=== PATIENT | female | born 1980 | race Caucasian/White ===

== ENCOUNTER → 2016-07-02 | Outpatient (CLI) | payer OTHER ==
[~2016-07-02] MED LIST: ATV/1 PO; CITA20TA9 PO; DULO60CA44 PO; HYDR-5688 PO; HYDR1CAP85 PO; LORA-741 PO; ONDA4TAB10 SL; PANT40TA PO
== END | disposition home or self-care (01) ==
LOC: C.LABBFT 10:25
PROVIDERS: ATTEND Internal Medicine
DX: E55.9 Vitamin D deficiency, unspecified (principal)

== ENCOUNTER 2016-07-07 12:54 | Emergency (ER) | payer OTHER ==
[~2016-07-07] VITALS: Ht 160 cm; Wt 89.4 kg
[~2016-07-07 12:54] MED LIST changes: -ATV/1 PO; -CITA20TA9 PO; -DULO60CA44 PO; -HYDR1CAP85 PO; -LORA-741 PO; -ONDA4TAB10 SL; -PANT40TA PO
[2016-07-07 12:58] VITALS: TEMP 36.7; Ht 160 cm; Wt 89.4 kg
[2016-07-07] MEDS ORDERED: LORAZEPAM 1 MG TAB SL STA (13:41)
[2016-07-07] MEDS ORDERED: DULO60CA44 PO (14:12)
[2016-07-07] MEDS ORDERED: ATV/1 PO (14:43)
[2016-07-07 14:54] VITALS: BP 129/85; PULSE 80; O2SAT 98
--- NOTE | 2016-07-07 17:12 | EMERGENCY ROOM VISIT NOTE ---
History Report prepared by Stephanie: Alisa Russo Under the Supervision of: Dr. Yrn Silva M.D. First contact with patient: 13:39 Chief Complaint: ANXIETY Stated Complaint: CHEST PAIN, DIZZY, FLUSHED, SHAKING History of Present Illness The patient is a 36 year old female who presents to the Emergency Room for evaluation after a possible anxiety attack while driving to work about 20 minutes prior to arrival. At the time of onset, the patient was driving to her first day of her new job when she suddenly felt a warm sensation radiating from her lower extremities, up her legs, abdomen and chest. She then felt a pounding in her chest, and she began shaking. Patient states that she has a history of anxiety, but she has never experienced similar symptoms to this with her past episodes, so she came to the ED for further evaluation. Patient notes that she was recently placed on Cymbalta 4 days ago, but her psychiatrist mentioned to her that it may take up to 2 months before it becomes effective. Patient states that she has been under a lot of stress lately due to her family and work. She also states that she has been attempting to quit smoking, and she was wearing a nicotine patch prior to arrival today. She denies recent fevers, chill, cough, chest pain, abdominal pain, nausea, vomiting (above baseline), diarrhea or urinary symptoms. Patient denies history of thyroid problems. 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 She began shaking. Review of Systems See HPI for pertinent positives & negatives. A total of 10 systems reviewed and were otherwise negative. Past Medical & Surgical Medical Problems: (1) Cervicalgia (2) Headache (3) Migraine Unspecified W/O Intract Mgrn W/O Status Migrainosus (4) Personal History Of Urinary Calculi (5) Pyelonephritis Nos (6) Tension Headache Family History Cancer Diabetes mellitus Gallbladder disease Heart disease Hypertension Kidney disease Kidney stones Lung disease Seizures Social History Smoking Status: Current Every Day Smoker Alcohol Use: none Drug Use: none Marital Status: in relationship Housing Status: lives with family Occupation Status: employed Current/Historical Medications Scheduled Duloxetine Hcl (Cymbalta), 60 MG PO DAILY Scheduled PRN Lorazepam (Ativan), 1-2 MG PO TID PRN for Anxiety/Agitation Allergies Coded Allergies: Pseudoephedrine (Unverified Allergy, Severe, ANAPHYLAXIS, 07/07/16) Sumatriptan (Unverified Allergy, Severe, ANAPHYLAXIS, 07/07/16) Tramadol (Unverified Allergy, Mild, RASH, 07/07/16) ITCHING AND MIGRAINE Penicillins (Unverified Allergy, Unknown, ITCHY/ RASH, 07/07/16) Physical Exam Vital Signs Date Time Temp Pulse Resp B/P Pulse Ox O2 Delivery O2 Flow Rate FiO2 07/07/16 14:54 80 129/85 98 07/07/16 12:58 36.7 18 20 136/97 96 Room Air Physical Exam GENERAL: Patient appears anxious and tearful. HEENT: No acute trauma, normocephalic atraumatic, mucous membranes moist, no nasal congestion, no scleral icterus. NECK: No stridor, no adenopathy, no meningismus, trachea is midline. LUNGS: Clear to auscultation bilaterally, no wheeze, no rhonchi, breath sounds equal. HEART: Without murmurs gallops or rubs, regular rate and rhythm. ABDOMEN: Soft, nontender, bowel sounds positive, no hernias, no peritonitis. EXTREMITIES: No cyanosis or edema, full range of motion of all the joints without pain or difficulty, no signs for acute trauma. NEUROLOGIC: Oriented x 3, no acute motor or sensory deficits, no focal weakness. No cerebellar dysfunction. SKIN: No rash, no jaundice, no diaphoresis. PSYCH: Cooperative, not suicidal, voluntary. Admits to anxiety. Medical Decision & Procedures Medications Administered Medications (Trade) Dose Ordered Sig/Nichole Route Start Time Stop Time Status Last Admin Dose Admin Lorazepam (Ativan Tab) 2 mg NOW STAT SL 07/07/16 13:41 07/07/16 13:45 DC 07/07/16 13:49 2 MG ED Course 1338: The patient was evaluated in room C1. A complete history and physical exam was performed. 1341: Ativan tab 2 mg SL was ordered. 1433: Upon reevaluation, the patient appeared to be resting more comfortably. She also stated that she felt better. I updated her on the results of my findings from her exam. Discharge instructions were also discussed. She verbalized her understanding and agreement with the treatment plan, and she is now ready for disposition. Medical Decision The patient is a 36 year old female who presents to the ED for evaluation after possibly suffering an anxiety attack 20 minutes prior to arrival. Differential diagnoses considered include anxiety and panic attack, dysrhythmia, SI, electrolyte imbalance, thyroid disorder and medication reaction. The patient presents with what sounds like an anxiety attack. She has a history of the same. She was recently started on Cymbalta for anxiety. She is not homicidal or suicidal. She would like something to help with her symptoms. She does not want to stay in the hospital on the psychiatry services. Other than being anxious, the patient's exam was unremarkable. She was given 2 mg of Ativan sublingual, she feels improved, she would like to be discharged home. I will have her use Ativan as needed for breakthrough anxiety. She will return if feeling suicidal or homicidal. [place] Drug Monitoring Program Search Results: patient reviewed within database, no issues identified Impression Primary Impression: Anxiety attack Scribe Attestation The scribe's documentation has been prepared under my direction and personally reviewed by me in its entirety. I confirm that the note above accurately reflects all work, treatment, procedures, and medical decision making performed by me. Departure Information Dispostion Home / Self-Care Prescriptions Lorazepam (ATIVAN) 1 Mg Tab 1-2 MG PO TID Y for Anxiety/Agitation, #12 TAB Prov: Yrn Silva M.D. 07/07/16 Referrals Silvio Morocho M.D. (PCP) Forms HOME CARE DOCUMENTATION FORM, IMPORTANT VISIT INFORMATION Patient Instructions My [facility] Additional Instructions talk with your prescribing doctor about todays visit use ativan 1-2 tab as needed up to 3x per day for anxiety attacks return if worsening or feeling suicidal
== END 2016-07-07 14:55 | disposition home or self-care (01) ==
LOC: C.EDB 12:55 → C.EDC 14:55
DX: F41.0 Panic disorder [episodic paroxysmal anxiety] (principal); G43.909 Migraine, unspecified, not intractable, without status migrainosus; Z87.442 Personal history of urinary calculi; F17.210 Nicotine dependence, cigarettes, uncomplicated; Z79.899 Other long term (current) drug therapy

== ENCOUNTER 2016-10-11 08:10 | Emergency (ER) | payer OTHER ==
[~2016-10-11] VITALS: Ht 160 cm; Wt 86.1 kg
[~2016-10-11 08:10] MED LIST changes: +DULO60CA44 PO; -HYDR-5688 PO
[2016-10-11 08:12] VITALS: TEMP 36.4; Ht 160 cm; Wt 86.1 kg
[2016-10-11] MEDS ORDERED: PROMETHAZINE HCL INJ 25 MG in SODIUM CHLORIDE 0.9% 50ML 50 ML IV STA (08:32)
--- NOTE | 2016-10-11 08:35 | EMERGENCY ROOM VISIT NOTE ---
History Report prepared by Stephanie: Jamaal Krueger Under the Supervision of: Maria Luisa RoyalO. First contact with patient: 08:17 Chief Complaint: HEAD PAIN Stated Complaint: HEAD/NECK PAIN,VOMITING,ANXIETY,DIARRHEA History of Present Illness The patient is a 36 year old female who presents to the Emergency Room with complaints of persistent back of the head pain beginning six weeks prior to arrival. She currently rates her discomfort as a 6/10 in severity. The patient associates dizziness described as spinning, lightheadedness, neck pain, nausea, vomiting, diarrhea, jaw pain, dry cough, and nasal congestion with today's symptoms. She states she vomits when she wakes up. The patient notes she has been taking laxatives that may have contributed to her diarrhea. She states she was recently placed on anxiety medications for her symptoms. The patient notes the discomfort in the back of her head feels like tension. She states she went to the doctor and tried the anxiety medications, but they have not relieved her symptoms. The patient denies trying a massage or anyone suggesting injections in the back of her neck for relief. 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 Review of Systems See above for pertinent positives & negatives. A total of 10 systems reviewed and were otherwise negative. Past Medical & Surgical Medical Problems: (1) Cervicalgia (2) Headache (3) Migraine Unspecified W/O Intract Mgrn W/O Status Migrainosus (4) Personal History Of Urinary Calculi (5) Pyelonephritis Nos (6) Tension Headache Family History Cancer Diabetes mellitus Gallbladder disease Heart disease Hypertension Kidney disease Kidney stones Lung disease Seizures Social History Smoking Status: Current Every Day Smoker Alcohol Use: none Drug Use: none Marital Status: in relationship Housing Status: lives with family Occupation Status: employed Current/Historical Medications Scheduled Citalopram Hydrobromide (Celexa), 20 MG PO HS Ondasetron Odt (Zofran Odt), 4 MG SL Q6H Allergies Coded Allergies: Pseudoephedrine (Unverified Allergy, Severe, ANAPHYLAXIS, 10/11/16) Sumatriptan (Unverified Allergy, Severe, ANAPHYLAXIS, 10/11/16) Tramadol (Unverified Allergy, Mild, RASH, 10/11/16) ITCHING AND MIGRAINE Penicillins (Unverified Allergy, Unknown, ITCHY/ RASH, 10/11/16) Physical Exam Vital Signs Date Time Temp Pulse Resp B/P Pulse Ox O2 Delivery O2 Flow Rate FiO2 10/11/16 10:28 61 18 99/65 96 Room Air 10/11/16 09:26 57 18 102/70 96 Room Air 10/11/16 09:04 59 10/11/16 08:56 97 Room Air 10/11/16 08:55 67 18 109/59 97 Room Air 10/11/16 08:12 36.4 84 18 132/78 96 Room Air Physical Exam GENERAL: Patient is fidgety, well appearing and in no acute distress. HEENT: No acute trauma, normocephalic atraumatic, mucous membranes moist, no nasal congestion, no scleral icterus. NECK: No stridor, no adenopathy, no meningismus, trachea is midline. LUNGS: No dyspnea. Clear to auscultation and equal bilaterally. No wheeze, no rhonchi. HEART: Regular rate and rhythm. No murmurs, rubs, gallops appreciated. ABDOMEN: Soft, nontender, bowel sounds positive, no masses appreciated, no peritonitis. BACK: No midline tenderness, no CVA tenderness EXTREMITIES: Normal motion all extremities, no cyanosis, no edema. NEUROLOGIC: Alert and oriented, no acute motor or sensory deficits, no focal weakness, cranial nerves II-XII intact. No pronator drift. Normal finger to nose. Negative Romberg. No nystagmus. SKIN: No rash, no jaundice, no diaphoresis. PSYCH: Mild pressured speech. Medical Decision & Procedures Laboratory Results 10/11/16 08:40 Red Blood Count 4.65, Mean Corpuscular Volume 88.8, Mean Corpuscular Hemoglobin 30.3, Mean Corpuscular Hemoglobin Concent 34.1, Mean Platelet Volume 10.6, Neutrophils (%) (Auto) 67.8, Lymphocytes (%) (Auto) 23.0, Monocytes (%) (Auto) 5.6, Eosinophils (%) (Auto) 2.5, Basophils (%) (Auto) 0.8, Neutrophils # (Auto) 6.14, Lymphocytes # (Auto) 2.08, Monocytes # (Auto) 0.51, Eosinophils # (Auto) 0.23, Basophils # (Auto) 0.07 10/11/16 08:40 Test 10/11/16 08:40 10/11/16 08:43 White Blood Count 9.06 K/uL (4.8-10.8) Red Blood Count 4.65 M/uL (4.2-5.4) Hemoglobin 14.1 g/dL (12.0-16.0) Hematocrit 41.3 % (37-47) Mean Corpuscular Volume 88.8 fL (80-100) Mean Corpuscular Hemoglobin 30.3 pg (25-34) Mean Corpuscular Hemoglobin Concent 34.1 g/dl (32-36) Platelet Count 286 K/uL (130-400) Mean Platelet Volume 10.6 fL (7.4-10.4) Neutrophils (%) (Auto) 67.8 % Lymphocytes (%) (Auto) 23.0 % Monocytes (%) (Auto) 5.6 % Eosinophils (%) (Auto) 2.5 % Basophils (%) (Auto) 0.8 % Neutrophils # (Auto) 6.14 K/uL (1.4-6.5) Lymphocytes # (Auto) 2.08 K/uL (1.2-3.4) Monocytes # (Auto) 0.51 K/uL (0.11-0.59) Eosinophils # (Auto) 0.23 K/uL (0-0.5) Basophils # (Auto) 0.07 K/uL (0-0.2) RDW Standard Deviation 42.3 fL (36.4-46.3) RDW Coefficient of Variation 13.2 % (11.5-14.5) Immature Granulocyte % (Auto) 0.3 % Immature Granulocyte # (Auto) 0.03 K/uL (0.00-0.02) Anion Gap 8.0 mmol/L (3-11) Est Creatinine Clear Calc Drug Dose 98.4 ml/min Estimated GFR () 105.9 Estimated GFR (Non- 91.4 BUN/Creatinine Ratio 18.8 (10-20) Calcium Level 9.4 mg/dl (8.5-10.1) Total Bilirubin 0.6 mg/dl (0.2-1) Direct Bilirubin 0.1 mg/dl (0-0.2) Aspartate Amino Transf (AST/SGOT) 14 U/L (15-37) Alanine Aminotransferase (ALT/SGPT) 23 U/L (12-78) Alkaline Phosphatase 73 U/L (45-117) Total Protein 8.3 gm/dl (6.4-8.2) Albumin 3.7 gm/dl (3.4-5.0) Lipase 74 U/L (73-393) Thyroid Stimulating Hormone (TSH) 0.727 uIu/ml (0.300-4.500) Urine Color DK YELLOW Urine Appearance CLOUDY (CLEAR) Urine pH 6.0 (4.5-7.5) Urine Specific [place] 1.032 (1.000-1.030) Urine Protein NEG (NEG) Urine Glucose (UA) NEG (NEG) Urine Ketones TRACE (NEG) Urine Occult Blood TRACE (NEG) Urine Nitrite NEG (NEG) Urine Bilirubin NEG (NEG) Urine Urobilinogen NEG (NEG) Urine Leukocyte Esterase NEG (NEG) Urine WBC (Auto) 10-30 /hpf (0-5) Urine RBC (Auto) 0-4 /hpf (0-4) Urine Hyaline Casts (Auto) 1-5 /lpf (0-5) Urine Epithelial Cells (Auto) >30 /lpf (0-5) Urine Bacteria (Auto) 4+ (NEG) Urine Pathogenic Casts /lpf (0) Urine Test NEG (NEG) Laboratory results as reviewed by me. Medications Administered Medications (Trade) Dose Ordered Sig/Nichole Route Start Time Stop Time Status Last Admin Dose Admin Sodium Chloride 1,000 ml @ 999 mls/hr Q1H1M IV 10/11/16 08:45 11/10/16 08:44 10/11/16 09:55 999 MLS/HR Promethazine HCl/ Sodium Chloride (Phenergan Inj/ Nss 50ml) 51 ml @ 204 mls/hr NOW STAT IV 10/11/16 08:32 10/11/16 08:46 DC 10/11/16 08:52 204 MLS/HR Bupivacaine HCl (Marcaine 0.5% MPF Inj) 30 ml NOW ONCE INFIL 10/11/16 08:45 10/11/16 08:46 DC 10/11/16 08:45 30 ML Ketorolac Tromethamine (Toradol Inj) 30 mg NOW STAT IV 10/11/16 09:51 10/11/16 09:52 DC 10/11/16 09:55 30 MG Procedure Lower Cervical Paraspinous Injection Indication: Myofascial Pain Syndrome. Verbal and written consent obtained. Risks and benefits were explained with the usual customary discussion. A time out was taken. No complications. The patient tolerated the procedure well. The area of the bilateral paraspinous musculature 1 cm lateral to the C7 spinous process was sterilized with chlorhexidine. Approximately 1.5 ML's of 0.5% Marcaine was injected after careful aspiration. Patient tolerated the procedure well Complications: None ECG Indication: other (head pain/neck pain) Rate (beats per minute): 62 Rhythm: normal sinus Findings: other (Normal axis. Normal intervals. No ST elevations.) Comparison ECG Date: 02/21/2016 Change: T wave is now upright in V2 likely lead placement related. ED Course 0824: The patient was evaluated in room B2. A complete history and physical exam was performed. 0832: Ordered Promethazine HCl 25 mg/Sodium Chloride 51 ml @ 204 mls/hr IV. 0845: Ordered Bupivacaine HCl 30 ml INFIL, Sodium Chloride 1,000 ml @ 999 mls/ hr IV. 0951: Ordered Toradol Inj 30 mg IV. 1003: Reevaluated the patient, and she is feeling better. Discussed results and discharge instructions: She verbalized understanding and agreement. The patient is ready for discharge. Medical Decision The differential diagnoses include but are not limited to: Etiologies such as migraine headache, meningitis, sinusitis, CO exposure, ICH, SAH, infection, tumor, headache, sinus thrombosis, arterial dissection, as well as others were entertained. Patient is a 36-year-old female with multiple complaints today. She states that she is seeking emergency medicine evaluation because she is not gotten a diagnosis from her primary doctor and is tired of the complaints which it been present for 6 weeks. Patient's headache/cervical pain she describes as a tension type that worsens when she clenches her teeth and experiences more stress. She states that she is dizzy and the room is spinning and episode occurred during my evaluation in the was no nystagmus. She is also complaining of nausea and vomiting. On my physical exam cranial nerves II through XII are grossly intact was no pronator drift and negative Romberg this was a nonfocal neurologic examination. The abdomen was soft nontender nondistended no guarding this was a nonsurgical abdomen. Will be evaluating for possible causes of nausea and vomiting which include pancreatitis hepatitis and , electrolyte disorder. She was given a bilateral paraspinal injection for the tension type headache. Patient appears to have asymmetric bacteria will send for formal culture and, if positive would treat with nitrofurantoin 100 mg twice a day for 7 days. [place] Drug Monitoring Program Search Results: patient reviewed within database, see additional documentation Drug Monitoring Findings: It is noted the patient has multiple providers with multiple prescriptions over the past six months. Most recently, the patient had three different prescribers for Ativan in the past three months. Impression Primary Impression: Tension headache Additional Impressions: Cervicalgia Asymptomatic bacteriuria Scribe Attestation The scribe's documentation has been prepared under my direction and personally reviewed by me in its entirety. I confirm that the note above accurately reflects all work, treatment, procedures, and medical decision making performed by me. Departure Information Dispostion Home / Self-Care Prescriptions Ondasetron Odt (ZOFRAN ODT) 4 Mg Tab 4 MG SL Q6H for Nausea, #6 TAB Prov: Pito Novak D.O. 10/11/16 Referrals Shaan Arcos M.D. (PCP) Forms HOME CARE DOCUMENTATION FORM, IMPORTANT VISIT INFORMATION, WORK / SCHOOL INSTRUCTIONS Patient Instructions ED Headache Tension, My [facility] Additional Instructions Follow-up with her primary care provider for further evaluation. Your labs today were normal. There was some bacteria in your urine, a urine culture will be performed. If this is positive you will be notified via telephone. Problem Qualifiers
[2016-10-11] MEDS ORDERED: CITA20TA9 PO (08:41)
[2016-10-11] MEDS ORDERED: BUPIVACAINE 0.5 % 5 MG/1 ML MPF 30ML VIAL INFIL ONE (08:45)
[2016-10-11] MEDS: SODIUM CHLORIDE 0.9% 1000ML 1,000 ML IV SCH ×2 (08:52→09:55)
[2016-10-11 08:56] VITALS: O2SAT 97
[2016-10-11 09:04] LABS: MANUAL MICROSCOPIC REQUIRED? NO; REVIEW REQ? YES; URINE APPEARANCE CLOUDY (CLEAR); URINE BILIRUBIN NEG (NEG); URINE COLOR DK YELLOW; URINE EPITHELIAL CELL AUTO >30 /lpf (0-5); URINE NITRITE NEG (NEG); URINE SPECIFIC GRAVITY 1.032 (1.000-1.030); UROBILINOGEN NEG (NEG); ZZUR CULT IF INDIC CLEAN CATCH YES
[2016-10-11 09:05] LABS: BASO % 0.8 %; BASO ABS # 0.07 K/uL (0-0.2); COMPLETE YES; EOS % 2.5 %; HEMATOCRIT 41.3 % (37-47); IG% 0.3 %; LYMPH ABS # 2.08 K/uL (1.2-3.4); MEAN CELL VOLUME 88.8 fL (80-100); MEAN CORPUSCULAR HEMOGLOBIN 30.3 pg (25-34); MEAN CORPUSCULAR HGB CONC 34.1 g/dl (32-36); MEAN PLATELET VOLUME 10.6 fL (7.4-10.4); MONO % 5.6 %; NEUT % 67.8 %; PLATELET COUNT 286 K/uL (130-400); RED BLOOD COUNT 4.65 M/uL (4.2-5.4); WHITE BLOOD COUNT 9.06 K/uL (4.8-10.8)
[2016-10-11 09:23] LABS: BUN/CREATININE RATIO 18.8 (10-20); CREATININE 0.83 mg/dl (0.60-1.20); POTASSIUM 3.8 mmol/L (3.5-5.1)
[2016-10-11 09:24] LABS: CALCIUM 9.4 mg/dl (8.5-10.1)
[2016-10-11 09:34] LABS: THYROID STIMULATING HORMONE 0.727 uIu/ml (0.300-4.500)
[2016-10-11] MEDS ORDERED: KETOROLAC TROMETHAMINE 30 MG/ML VIAL IV STA (09:51)
[2016-10-11] MEDS ORDERED: ONDA4TAB10 SL (10:44)
[2016-10-11 11:37] VITALS: BP 105/68; PULSE 63; O2SAT 96
== END 2016-10-11 11:38 | disposition home or self-care (01) ==
LOC: C.EDB 08:11
DX: G44.209 Tension-type headache, unspecified, not intractable (principal); M54.2 Cervicalgia; M79.1 Myalgia; R82.71 Bacteriuria; F17.200 Nicotine dependence, unspecified, uncomplicated; Z87.440 Personal history of urinary (tract) infections; Z87.442 Personal history of urinary calculi; Z88.1 Allergy status to other antibiotic agents; Z88.8 Allergy status to other drugs, medicaments and biological substances; Z80.9 Family history of malignant neoplasm, unspecified; Z83.3 Family history of diabetes mellitus; Z83.79 Family history of other diseases of the digestive system; Z82.49 Family history of ischemic heart disease and other diseases of the circulatory system; Z84.1 Family history of disorders of kidney and ureter; Z82.0 Family history of epilepsy and other diseases of the nervous system

== ENCOUNTER 2017-03-18 16:39 | Emergency (ER) | payer OTHER ==
[~2017-03-18] VITALS: Ht 160 cm; Wt 89.9 kg
[~2017-03-18 16:39] MED LIST changes: +CITA20TA9 PO; -DULO60CA44 PO; +ONDA4TAB10 SL
[2017-03-18 16:41] VITALS: TEMP 36.6; Ht 160 cm; Wt 89.9 kg
[2017-03-18] MEDS ORDERED: KETOROLAC TROMETHAMINE 30 MG/ML VIAL IV STA (17:00)
[2017-03-18] MEDS ORDERED: SODIUM CHLORIDE 0.9% 1000ML 2,000 ML IV STA (17:00)
[2017-03-18] MEDS ORDERED: ONDANSETRON INJ 2 MG/ML 2 ML VIAL IV STA (17:00)
[2017-03-18] MEDS ORDERED: LORA-741 PO (17:22)
[2017-03-18] MEDS ORDERED: HYDR1CAP85 PO (17:22)
[2017-03-18] MEDS ORDERED: PANT40TA PO (17:22)
[2017-03-18 17:28] LABS: BASO % 0.5 %; BASO ABS # 0.05 K/uL (0-0.2); COMPLETE YES; EOS % 1.7 %; HEMATOCRIT 41.8 % (37-47); IG% 0.3 %; LYMPH % 19.5 %; LYMPH ABS # 2.15 K/uL (1.2-3.4); MEAN CELL VOLUME 88.9 fL (80-100); MEAN CORPUSCULAR HEMOGLOBIN 28.9 pg (25-34); MEAN CORPUSCULAR HGB CONC 32.5 g/dl (32-36); MEAN PLATELET VOLUME 10.3 fL (7.4-10.4); MONO % 3.2 %; NEUT % 74.8 %; PLATELET COUNT 271 K/uL (130-400); WHITE BLOOD COUNT 11.02 K/uL (4.8-10.8)
--- NOTE | 2017-03-18 17:41 | DIAGNOSTIC IMAGING REPORT ---
CHEST ONE VIEW PORTABLE CLINICAL HISTORY: 36 years-old Female presenting with chest pain. TECHNIQUE: Portable upright AP view of the chest was obtained. COMPARISON: 03/11/2016. FINDINGS: Cardiomediastinal silhouette normal. Lungs and pleural spaces clear. Osseous structures normal. Upper abdomen normal. IMPRESSION: 1. No acute cardiopulmonary disease. Electronically signed by: Vasyl Morrow M.D. 03/18/2017 5:40 PM Dictated Date/Time: 03/18/2017 5:39 PM
[2017-03-18 17:46] LABS: BUN/CREATININE RATIO 14.1 (10-20); CALCIUM 9.5 mg/dl (8.5-10.1); CREATININE 0.76 mg/dl (0.60-1.20); POTASSIUM 3.8 mmol/L (3.5-5.1)
[2017-03-18 17:50] LABS: URINE APPEARANCE CLEAR (CLEAR); URINE BILIRUBIN NEG (NEG); URINE COLOR YELLOW; URINE EPITHELIAL CELL AUTO >30 /lpf (0-5); URINE NITRITE NEG (NEG); URINE PH 8.5 (4.5-7.5); URINE SPECIFIC GRAVITY 1.013 (1.000-1.030); UROBILINOGEN NEG (NEG); ZZUR CULT IF INDIC CLEAN CATCH YES
[2017-03-18 17:51] LABS: MANUAL MICROSCOPIC REQUIRED? NO; REVIEW REQ? NO
--- NOTE | 2017-03-18 18:00 | DIAGNOSTIC IMAGING REPORT ---
HEAD WITHOUT CONTRAST (CT) CT DOSE: 988.73 mGycm HISTORY: Mental status change. Visual disturbance. ALLEN blurry vision TECHNIQUE: Multiaxial CT images of the head were performed without the use of intravenous contrast. A dose lowering technique was utilized adhering to the principles of ALARA. Comparison: 01/07/2014 Findings: The paranasal sinuses and mastoid air cells are clear. The calvarium and skull base are intact. The ventricles and sulci are within normal limits. There is no mass, hematoma, midline shift, or acute infarct. Impression: No acute intracranial abnormality. The above report was generated using voice recognition software. It may contain grammatical, syntax or spelling errors. Electronically signed by: Zander Ohara M.D. 03/18/2017 5:58 PM Dictated Date/Time: 03/18/2017 5:58 PM
[2017-03-18 18:30] VITALS: BP 107/53; PULSE 68; O2SAT 96
--- NOTE | 2017-03-18 19:52 | EMERGENCY ROOM VISIT NOTE ---
History Report prepared by Stephanie: Mario Felder Under the Supervision of: Dr. Remi Rawls D.O. First contact with patient: 16:51 Chief Complaint: DIZZY Stated Complaint: HEAD, DIZZY, FELLS LIKE GOING TO PASS OUT Nursing Triage Summary: pt c/o feeling "dizzy..fuzzy in my head." for past 1 1/2 months. pt states she decided to come to ER today when vision was getting blurry. "and why I drank mountain dew and chips and it didn't go away." I have low blod pressure 95% of the time History of Present Illness The patient is a 36 year old female who presents to the Emergency Room with complaints of an episode of blurry vision that started around 2 hours ago. She says that the blurry vision would not go away so she decided to come here. She states that the blurry vision was there for around 30 minutes. She says that both eyes were blurry. She adds that she has a history of migraines, normally on her left side and does shoot straight back through, with photosensitivity and nausea. She says that she currently has a headache, but this headache is not as bad as it normally is, and she just has pain on the front of her head and the back of her head, and it does not shoot through her head. The patient notes that she has been having a lot of issues for the past month, including low blood pressure, anxiety, and panic attacks. She says that she gets intermittent chest pain, shortness of breath, left arm numbness, neck pain, and headaches when she gets stressed. The patient says that the chest pain feels like someone is sitting on her, and is located on her left side. She states that she last had the chest pain yesterday, and she currently does not feel anxious. The patient denies any current chest pain, shortness of breath, fingertip tingling, weakness or numbness in her arms or legs. The patient notes no recent drug or alcohol use. Patient denies swelling of calves, recent trips, history of immobilization or recent surgery, prior history of DVT, hemoptysis, history of malignancy, or control/estrogen use. Patient denies diabetes, hypertension, hyperlipidemia, CAD, history of sudden at a young age. The patient smokes 3 cigarettes per day. Source of History: patient, family Onset: Around 2 hours ago Position: eye (bilateral) Symptom Intensity: lasted 30 minutes Quality: other (blurry vision) Timing: other (episode) Associated Symptoms: No chest pain (no current), No SOB (no current), No weakness (arms or legs), No numbness (arms or legs currently) Note: Associated symptoms: Denies calf swelling. Review of Systems See HPI for pertinent positives & negatives. A total of 10 systems reviewed and were otherwise negative. Past Medical & Surgical Medical Problems: (1) Cervicalgia (2) Headache (3) Migraine Unspecified W/O Intract Mgrn W/O Status Migrainosus (4) Personal History Of Urinary Calculi (5) Pyelonephritis Nos (6) Tension Headache Family History Cancer Diabetes mellitus Gallbladder disease Heart disease Hypertension Kidney disease Kidney stones Lung disease Seizures Social History Smoking Status: Current Every Day Smoker Alcohol Use: none Drug Use: none Marital Status: in relationship Housing Status: lives with family Occupation Status: employed Current/Historical Medications Scheduled Hydroxyzine Pamoate (Vistaril), 25 MG PO PRN UD Pantoprazole (Protonix), 40 MG PO DAILY Scheduled PRN Lorazepam (Ativan), 0.5 MG PO DAILY PRN for Anxiety Allergies Coded Allergies: Pseudoephedrine (Unverified Allergy, Severe, ANAPHYLAXIS, 10/11/16) Sumatriptan (Unverified Allergy, Severe, ANAPHYLAXIS, 10/11/16) Tramadol (Unverified Allergy, Mild, RASH, 10/11/16) ITCHING AND MIGRAINE Penicillins (Unverified Allergy, Unknown, ITCHY/ RASH, 10/11/16) Bupropion (Verified Adverse Reaction, Severe, STOPS BREATHING, 03/18/17) Physical Exam Vital Signs Date Time Temp Pulse Resp B/P (MAP) Pulse Ox O2 Delivery O2 Flow Rate FiO2 03/18/17 18:30 68 18 107/53 96 Room Air 03/18/17 16:41 36.6 105 20 132/76 96 Room Air Physical Exam GENERAL: anxious-appearing, sitting up in bed, no acute distress, nontoxic EYE EXAM: normal conjunctiva, PERRL and EOM's intact OROPHARYNX: no exudate, no erythema, lips, buccal mucosa, and tongue normal and mucous membranes are moist NECK: supple, no nuchal rigidity, no adenopathy, non-tender LUNGS: Clear to auscultation. Normal chest wall mechanics HEART: no murmurs, S1 normal and S2 normal ABDOMEN: abdomen soft, non-tender, normo-active bowel sounds, no masses, no rebound or guarding. BACK: Back is symmetrical on inspection and there is no deformity, no midline tenderness, no CVA tenderness. SKIN: no rashes and no bruising UPPER EXTREMITIES: upper extremities are grossly normal. LOWER EXTREMITIES: No pitting edema. NEURO EXAM: Normal sensorium, cranial nerves II-XII intact, normal speech, no weakness of arms, no weakness of legs. No drift. Finger to nose intact. Gross sensation intact. Rapid alternating movements of upper extremities intact. Medical Decision & Procedures ER Provider Diagnostic Interpretation: Radiology results as stated below per my review and the radiologist's interpretation: HEAD WITHOUT CONTRAST (CT) CT DOSE: 988.73 mGycm HISTORY: Mental status change. Visual disturbance. ALLEN blurry vision TECHNIQUE: Multiaxial CT images of the head were performed without the use of intravenous contrast. A dose lowering technique was utilized adhering to the principles of ALARA. Comparison: 01/07/2014 Findings: The paranasal sinuses and mastoid air cells are clear. The calvarium and skull base are intact. The ventricles and sulci are within normal limits. There is no mass, hematoma, midline shift, or acute infarct. Impression: No acute intracranial abnormality. The above report was generated using voice recognition software. It may contain grammatical, syntax or spelling errors. Electronically signed by: Zander Ohara M.D. 03/18/2017 5:58 PM Dictated Date/Time: 03/18/2017 5:58 PM CHEST ONE VIEW PORTABLE CLINICAL HISTORY: 36 years-old Female presenting with chest pain. TECHNIQUE: Portable upright AP view of the chest was obtained. COMPARISON: 03/11/2016. FINDINGS: Cardiomediastinal silhouette normal. Lungs and pleural spaces clear. Osseous structures normal. Upper abdomen normal. IMPRESSION: 1. No acute cardiopulmonary disease. Electronically signed by: Vasyl Morrow M.D. 03/18/2017 5:40 PM Dictated Date/Time: 03/18/2017 5:39 PM Laboratory Results 03/18/17 17:17 Red Blood Count 4.70, Mean Corpuscular Volume 88.9, Mean Corpuscular Hemoglobin 28.9, Mean Corpuscular Hemoglobin Concent 32.5, Mean Platelet Volume 10.3, Neutrophils (%) (Auto) 74.8, Lymphocytes (%) (Auto) 19.5, Monocytes (%) (Auto) 3.2, Eosinophils (%) (Auto) 1.7, Basophils (%) (Auto) 0.5, Neutrophils # (Auto) 8.25, Lymphocytes # (Auto) 2.15, Monocytes # (Auto) 0.35, Eosinophils # (Auto) 0.19, Basophils # (Auto) 0.05 03/18/17 17:17 Test 03/18/17 17:17 03/18/17 17:30 White Blood Count 11.02 K/uL (4.8-10.8) Red Blood Count 4.70 M/uL (4.2-5.4) Hemoglobin 13.6 g/dL (12.0-16.0) Hematocrit 41.8 % (37-47) Mean Corpuscular Volume 88.9 fL (80-100) Mean Corpuscular Hemoglobin 28.9 pg (25-34) Mean Corpuscular Hemoglobin Concent 32.5 g/dl (32-36) Platelet Count 271 K/uL (130-400) Mean Platelet Volume 10.3 fL (7.4-10.4) Neutrophils (%) (Auto) 74.8 % Lymphocytes (%) (Auto) 19.5 % Monocytes (%) (Auto) 3.2 % Eosinophils (%) (Auto) 1.7 % Basophils (%) (Auto) 0.5 % Neutrophils # (Auto) 8.25 K/uL (1.4-6.5) Lymphocytes # (Auto) 2.15 K/uL (1.2-3.4) Monocytes # (Auto) 0.35 K/uL (0.11-0.59) Eosinophils # (Auto) 0.19 K/uL (0-0.5) Basophils # (Auto) 0.05 K/uL (0-0.2) RDW Standard Deviation 44.4 fL (36.4-46.3) RDW Coefficient of Variation 13.5 % (11.5-14.5) Immature Granulocyte % (Auto) 0.3 % Immature Granulocyte # (Auto) 0.03 K/uL (0.00-0.02) Anion Gap 9.0 mmol/L (3-11) Est Creatinine Clear Calc Drug Dose 109.9 ml/min Estimated GFR () 117.8 Estimated GFR (Non- 101.6 BUN/Creatinine Ratio 14.1 (10-20) Calcium Level 9.5 mg/dl (8.5-10.1) Total Bilirubin 0.5 mg/dl (0.2-1) Direct Bilirubin 0.1 mg/dl (0-0.2) Aspartate Amino Transf (AST/SGOT) 17 U/L (15-37) Alanine Aminotransferase (ALT/SGPT) 38 U/L (12-78) Alkaline Phosphatase 70 U/L (45-117) Total Protein 8.2 gm/dl (6.4-8.2) Albumin 3.6 gm/dl (3.4-5.0) Lipase 89 U/L (73-393) Urine Color YELLOW Urine Appearance CLEAR (CLEAR) Urine pH 8.5 (4.5-7.5) Urine Specific [place] 1.013 (1.000-1.030) Urine Protein NEG (NEG) Urine Glucose (UA) NEG (NEG) Urine Ketones NEG (NEG) Urine Occult Blood NEG (NEG) Urine Nitrite NEG (NEG) Urine Bilirubin NEG (NEG) Urine Urobilinogen NEG (NEG) Urine Leukocyte Esterase NEG (NEG) Urine WBC (Auto) 1-5 /hpf (0-5) Urine RBC (Auto) 0-4 /hpf (0-4) Urine Hyaline Casts (Auto) 1-5 /lpf (0-5) Urine Epithelial Cells (Auto) >30 /lpf (0-5) Urine Bacteria (Auto) 1+ (NEG) Urine Test NEG (NEG) Laboratory results per my review. Medications Administered Medications (Trade) Dose Ordered Sig/Nichole Route Start Time Stop Time Status Last Admin Dose Admin Sodium Chloride 2,000 ml @ 999 mls/hr Q2H1M STAT IV 03/18/17 17:00 03/18/17 19:00 DC 03/18/17 17:30 999 MLS/HR Ondansetron HCl (Zofran Inj) 4 mg NOW STAT IV 03/18/17 17:00 03/18/17 17:02 DC 03/18/17 17:30 4 MG Ketorolac Tromethamine (Toradol Inj) 30 mg NOW STAT IV 03/18/17 17:00 03/18/17 17:02 DC 03/18/17 17:30 30 MG ECG Indication: chest pain Rate (beats per minute): 91 Rhythm: sinus rhythm Findings: no acute ischemic change, no ectopy, other (normal axis) ED Course ED COURSE: Vital signs were reviewed and showed tachycardic vitals. The patients medical record was reviewed The above diagnostic studies were performed and reviewed. ED treatments and interventions as stated above. 1654: The patient was evaluated in room A3. A complete history and physical examination was performed. 1700: Ordered Toradol Inj 30 mg IV, Zofran Inj 4 mg IV, NSS 2000 ml @ 999 mls/ hr IV. 1843: Upon reevaluation, the patient is feeling better. Her blurry vision has resolved, and her headache has improved. I discussed my findings with the patient and she understands and agrees with the treatment plan. Based on the patients age, coexisting illnesses, exam and lab findings the decision to treat as an outpatient was made. The patient remained stable while under my care. The patient appeared well at the time of discharge. Medical Decision Differential Diagnosis includes but is not limited to headache, tension headache , cluster headache, migraine, subarachnoid hemorrhage, meningitis, mass, central venous thrombus, concussion, trauma and epidural/subdural hemorrhage. Patient is a 36-year-old female who presents to ER for intermittent dizziness which has been present for the past month. She notes the majority of these symptoms are brought on when she becomes anxious or worried about something. No chest pain for the past 24 hours. She notes her chest pain is only present which comes anxious. EKG was unremarkable. Chest pain is consistent with anxiety. She complains of a mild headache which is much improved from her typical migraines associated with mild blurry vision bilaterally. She notes this lasted for 30 minutes and has completely resolved. CT head was unremarkable. Visual acuity was 20/40 bilateral per report of nursing. She is completely neurologically intact. No signs meningitis or encephalitis. Headache came on gradually and progressively worsened. Do not believe SAH. CBC on BMP, LFTs, bilirubin was unremarkable. UA was contaminated with multiple epithelial cells. was negative. Patient was updated at bedside and discharge follow-up with PCP. Discussed with Pt concerning signs and symptoms to watch out for. Pt was instructed to follow up with their PCP and discussed with the patient their option to return to the ED at anytime for persistent or worsening symptoms. The appropriate anticipatory guidance and out- patient management, including indications for return to the emergency department , were explained at length to the patient and understood. Medication Reconcilliation Current Medication List: was personally reviewed by me Blood Pressure Screening Patient's blood pressure: Normal blood pressure Impression Primary Impression: Headache Scribe Attestation The scribe's documentation has been prepared under my direction and personally reviewed by me in its entirety. I confirm that the note above accurately reflects all work, treatment, procedures, and medical decision making performed by me. Departure Information Dispostion Home / Self-Care Referrals Silvio Morocho M.D. (PCP) Patient Instructions Headache Pain, My [facility] Additional Instructions Please follow up with your primary care doctor or if you are a student, [facility] with in the next 24 hours. Any worsening of your symptoms, please return to the ED immediately. This includes any fevers greater than 100.4, worsening pain, chest pain, shortness breath, persistent nausea, vomiting, unable to eat or drink, or any other concerning signs or symptoms from your standpoint. You were found to have a blood pressure greater than 120 systolic over 90 diastolic. Due to the new Medicare guidelines, we are now recommending that you follow up with your primary care doctor in regards to this elevated blood pressure. Problem Qualifiers Primary Impression: Headache Headache type: unspecified Headache chronicity pattern: acute headache Intractability: not intractable Qualified Codes: R51 - Headache
== END 2017-03-18 18:55 | disposition home or self-care (01) ==
LOC: C.EDB 16:40 → C.EDA 18:55
DX: R51 Headache (principal); Z87.442 Personal history of urinary calculi; N12 Tubulo-interstitial nephritis, not specified as acute or chronic; F17.210 Nicotine dependence, cigarettes, uncomplicated; Z80.9 Family history of malignant neoplasm, unspecified; Z83.3 Family history of diabetes mellitus; Z83.79 Family history of other diseases of the digestive system; Z84.1 Family history of disorders of kidney and ureter; Z83.6 Family history of other diseases of the respiratory system; Z79.899 Other long term (current) drug therapy